=== PATIENT | male | born 1955 | race Hispanic/Latino ===

== ENCOUNTER 2022-02-01 12:49 | Emergency (ER) | payer MEDICARE, OTHER ==
[~2022-02-01] VITALS: Ht 162.6 cm; Wt 64.4 kg
[2022-02-01] MEDS ORDERED: IBUPROFEN 600 MG TABLET PO ONE (13:30)
[2022-02-01] MEDS ORDERED: BACITRACIN 1 EACH PACKET TP ONE ×2 (15:00→15:18)
[2022-02-01] MEDS ORDERED: TETANUS/DIPHTHERIA TOXOID [ADULT] 0.5 ML VIAL IM ONE (15:00)
[2022-02-01] MEDS ORDERED: IBUP-2070 PO (15:04)
[2022-02-01] MEDS ORDERED: BACI30OI6 TP (15:04)
[2022-02-01 15:29] VITALS: BP 130/68
== END 2022-02-01 15:30 | disposition home or self-care (01) ==
LOC: EDH 12:49
DX: S51.802A Unspecified open wound of left forearm, initial encounter (principal); M25.511 Pain in right shoulder; M54.6 Pain in thoracic spine; E78.5 Hyperlipidemia, unspecified; W11.XXXA Fall on and from ladder, initial encounter; Y93.89 Activity, other specified; Y92.89 Other specified places as the place of occurrence of the external cause; Y99.8 Other external cause status
CPT/HCPCS: 71046; 73030; 90471; 90714

== ENCOUNTER 2022-02-06 11:28 | Emergency (ER) | payer OTHER ==
[~2022-02-06] VITALS: Ht 160 cm; Wt 65.8 kg
[~2022-02-06 11:28] MED LIST: BACI30OI6 TP; IBUP-2070 PO
[2022-02-06] MEDS ORDERED: HYDROCODONE/ACETAMINOPHEN 10/325 MG TAB PO ONE (12:30)
[2022-02-06] MEDS ORDERED: KETOROLAC 60 MG VIAL (30MG/ML) IM ONE (12:30)
[2022-02-06] MEDS ORDERED: ACET-2079 PO (13:56)
[2022-02-06 14:08] VITALS: BP 133/65
== END 2022-02-06 14:10 | disposition home or self-care (01) ==
LOC: EDH 11:28
DX: S13.4XXA Sprain of ligaments of cervical spine, initial encounter (principal); M54.50 Low back pain, unspecified; E78.00 Pure hypercholesterolemia, unspecified; V49.49XA Driver injured in collision with other motor vehicles in traffic accident, initial encounter; Y93.89 Activity, other specified; Y92.89 Other specified places as the place of occurrence of the external cause; Y99.8 Other external cause status
CPT/HCPCS: 99283; 72100; 96372; J1885